=== PATIENT | male | born 1985 | race Two or more races ===

== ENCOUNTER 2024-04-27 10:28 | Inpatient (IN) | payer OTHER ==
[~2024-04-27] VITALS: Ht 172.7 cm; Wt 88.5 kg
[2024-04-27] MEDS: MAG HYDROX/AL HYDROX/SIMETH 30 ML UDC PO ONE (11:06)
[2024-04-27] MEDS: FAMOTIDINE (20 MG) 20 MG TABLET PO ONE (11:07)
[2024-04-27] MEDS ORDERED: MAG HYDROX/AL HYDROX/SIMETH 30 ML UDC ONE (11:08)
[2024-04-27] MEDS ORDERED: FAMOTIDINE (20 MG) 20 MG TABLET ONE (11:08)
[2024-04-27 11:16] LABS: BASOPHILS % (AUTO) 0.3 % (0.0-2.0); EOSINOPHILS % (AUTO) 0.8 % (0.0-6.0); HEMATOCRIT 43 % (39-51); HEMOGLOBIN 14.2 g/dL (13.5-17.5); MEAN CORPUSCULAR HEMOGLOBIN 29 PG (26.0-33.0); MEAN CORPUSCULAR HGB CONC 33 g/dl (31.0-36.0); MEAN CORPUSCULAR VOLUME 88 fL (80-96); MONOCYTES % (AUTO) 8.5 % (2.0-12.0); NEUTROPHILS % (AUTO) 82.4 % (43.0-81.0); PLATELET COUNT (AUTO) 252 K/uL (150-450); RED BLOOD CELL COUNT(AUTO) 4.82 MIL/uL (4.5-6.0); RED CELL DISTRIBUTION WIDTH 13.6 % (11.5-15.0); WHITE BLOOD COUNT (AUTO) 9.5 K/uL (4.3-11.0)
[2024-04-27 11:17] LABS: EOSINOPHILS # (AUTO) 0.1 K/uL (0.0-0.7); LYMPHOCYTES # (AUTO) 0.8 K/uL (0.8-4.8); MONOCYTES # (AUTO) 0.8 K/uL (0.1-1.30); NEUTROPHILS # (AUTO) 7.8 K/uL (1.8-8.9)
[2024-04-27 11:25] LABS: CALCIUM, SERUM 9.5 mg/dL (8.5-10.1); CARBON DIOXIDE 27 mmol/L (21-32); CHLORIDE 102 mmol/L (98-107); CREATININE 1.1 mg/dL (0.6-1.3); GLUCOSE 105 mg/dL (74-106); SODIUM SERUM 139 mmol/L (136-145); UREA NITROGEN, BLOOD 16 mg/dL (7-18)
[2024-04-27] MEDS: ASPIRIN 81 MG TAB.CHEW PO ONE (12:00)
[2024-04-27] MEDS ORDERED: ASPIRIN 81 MG TAB.CHEW ONE (12:02)
[2024-04-27] MEDS ORDERED: IOHEXOL-350 100 ML VIAL IV ONE (12:17)
[2024-04-27] MEDS ORDERED: FORTICAL PO (13:12)
[2024-04-27] MEDS ORDERED: IBUP-1955 PO (13:12)
[2024-04-27] MEDS ORDERED: CALC-494 PO (13:12)
[2024-04-27 13:55] LABS: INR 0.98 (0.91-1.10); PARTIAL THROMBOPLASTIN TIME 27.9 SEC (24.3-34.3); PROTHROMBIN TIME 10.4 SECS (9.2-11.1)
[2024-04-27] MEDS ORDERED: ENOXAPARIN SODIUM 100 MG/ML DISP.SYRIN SQ ONE (13:56)
[2024-04-27] MEDS: ENOXAPARIN SODIUM 80 MG/0.8 ML DISP.SYRIN SQ ONE (13:58)
[2024-04-27] MEDS: ENOXAPARIN SODIUM 100 MG/ML DISP.SYRIN SQ ONE (14:17)
[2024-04-27] MEDS ORDERED: ZOLPIDEM TARTRATE 5 MG TABLET PO PRN (15:00)
[2024-04-27 15:53] VITALS: BP 140/94; TEMP 98.2; O2SAT 96
[2024-04-27] MEDS: HYDROCODONE/APAP 5/325MG TABLET PO PRN (18:39)
[2024-04-27 20:00] VITALS: BP 142/99; TEMP 97.3; O2SAT 95
[2024-04-27] MEDS: ENOXAPARIN SODIUM 80 MG/0.8 ML DISP.SYRIN SQ SCH (20:27)
[2024-04-28] VITALS: BP 137/98; TEMP 97.6; O2SAT 96
[2024-04-28 04:00] VITALS: BP 139/95; TEMP 98.1; O2SAT 96
[2024-04-28] MEDS: ACETAMINOPHEN 650 MG/20.3 ML UDC NG PRN (06:17)
[2024-04-28 06:39] LABS: BASOPHILS % (AUTO) 0.6 % (0.0-2.0); EOSINOPHILS # (AUTO) 0.1 K/uL (0.0-0.7); EOSINOPHILS % (AUTO) 2.3 % (0.0-6.0); HEMATOCRIT 44 % (39-51); HEMOGLOBIN 14.5 g/dL (13.5-17.5); LYMPHOCYTES # (AUTO) 1.2 K/uL (0.8-4.8); LYMPHOCYTES % (AUTO) 21.3 % (20.0-44.0); MEAN CORPUSCULAR HEMOGLOBIN 29 PG (26.0-33.0); MEAN CORPUSCULAR HGB CONC 33 g/dl (31.0-36.0); MEAN CORPUSCULAR VOLUME 89 fL (80-96); MONOCYTES # (AUTO) 0.6 K/uL (0.1-1.30); MONOCYTES % (AUTO) 11.1 % (2.0-12.0); NEUTROPHILS # (AUTO) 3.6 K/uL (1.8-8.9); NEUTROPHILS % (AUTO) 64.7 % (43.0-81.0); PLATELET COUNT (AUTO) 243 K/uL (150-450); RED BLOOD CELL COUNT(AUTO) 4.93 MIL/uL (4.5-6.0); RED CELL DISTRIBUTION WIDTH 13.7 % (11.5-15.0); WHITE BLOOD COUNT (AUTO) 5.6 K/uL (4.3-11.0)
[2024-04-28 06:47] LABS: CALCIUM, SERUM 9.3 mg/dL (8.5-10.1); CARBON DIOXIDE 23 mmol/L (21-32); CHLORIDE 105 mmol/L (98-107); CREATININE 0.9 mg/dL (0.6-1.3); GLUCOSE 102 mg/dL (74-106); POTASSIUM 3.9 mmol/L (3.5-5.1); SODIUM SERUM 140 mmol/L (136-145); UREA NITROGEN, BLOOD 11 mg/dL (7-18)
[2024-04-28 07:46] LABS: CHOLESTEROL 249 mg/dL (<200); HDL CHOLESTEROL 59 mg/dL (40-60); LDL 150 mg/dL (0-99); TRIGLYCERIDES 249 mg/dL (30-150)
[2024-04-28] MEDS ORDERED: ACETAMINOPHEN 325 MG TABLET PO PRN (08:30)
[2024-04-28] MEDS ORDERED: APIX5TAB4 PO (09:06)
[2024-04-28 10:11] VITALS: BP 146/97; TEMP 98.2; O2SAT 93
[2024-04-28] MEDS ORDERED: APIXABAN 5 MG TABLET PO SCH (17:00)
== END 2024-04-28 11:00 | disposition home or self-care (01) | DRG 134 ==
LOC: ER 10:28 → TELE 13:46
PROVIDERS: ADMIT Internal Medicine; ATTEND Internal Medicine
DX: I26.99 Other pulmonary embolism without acute cor pulmonale (principal); I21.A1 Myocardial infarction type 2; D68.59 Other primary thrombophilia; K21.9 Gastro-esophageal reflux disease without esophagitis
CPT/HCPCS: 36415; 71045-TC; 80048-TC; 80061-TC; 82550-TC; 82553; 84484-TC; 85025-TC; 85730-TC; 93307-TC; 93970-TC; G0378; J1650; Q9967

== ENCOUNTER 2024-08-01 10:29 | Inpatient (IN) | payer OTHER ==
[~2024-08-01] VITALS: Ht 172.7 cm; Wt 88.5 kg
[~2024-08-01 10:29] MED LIST: APIX5TAB4 PO; CALC-494 PO; FORTICAL PO
[2024-08-01 11:00] VITALS: TEMP 98.3
[2024-08-01] MEDS ORDERED: METOCLOPRAMIDE HCL 10 MG/2 ML VIAL ONE (11:40)
[2024-08-01] MEDS ORDERED: ACETAMINOPHEN ES 500 MG TABLET ONE (11:40)
[2024-08-01] MEDS ORDERED: SUMATRIPTAN SUCCINATE 6 MG/0.5 ML VIAL SQ ONE (11:40)
[2024-08-01 11:47] LABS: BASOPHILS % (AUTO) 0.9 % (0.0-2.0); EOSINOPHILS # (AUTO) 0.1 K/uL (0.0-0.7); EOSINOPHILS % (AUTO) 1.8 % (0.0-6.0); HEMATOCRIT 44 % (39-51); HEMOGLOBIN 14.9 g/dL (13.5-17.5); LYMPHOCYTES # (AUTO) 1.1 K/uL (0.8-4.8); LYMPHOCYTES % (AUTO) 20.3 % (20.0-44.0); MEAN CORPUSCULAR HEMOGLOBIN 30 PG (26.0-33.0); MEAN CORPUSCULAR HGB CONC 34 g/dl (31.0-36.0); MEAN CORPUSCULAR VOLUME 87 fL (80-96); MONOCYTES # (AUTO) 0.4 K/uL (0.1-1.30); MONOCYTES % (AUTO) 8.2 % (2.0-12.0); NEUTROPHILS # (AUTO) 3.7 K/uL (1.8-8.9); NEUTROPHILS % (AUTO) 68.8 % (43.0-81.0); PLATELET COUNT (AUTO) 267 K/uL (150-450); RED BLOOD CELL COUNT(AUTO) 5.05 MIL/uL (4.5-6.0); RED CELL DISTRIBUTION WIDTH 13.7 % (11.5-15.0); WHITE BLOOD COUNT (AUTO) 5.3 K/uL (4.3-11.0)
[2024-08-01 11:51] LABS: CALCIUM, SERUM 8.8 mg/dL (8.5-10.1); CARBON DIOXIDE 33 mmol/L (21-32); CHLORIDE 105 mmol/L (98-107); GLUCOSE 100 mg/dL (74-106); POTASSIUM 4.1 mmol/L (3.5-5.1); SODIUM SERUM 142 mmol/L (136-145); UREA NITROGEN, BLOOD 10 mg/dL (7-18)
[2024-08-01] MEDS: IV NS 0.9% 1,000 ML BAG IV ONE (11:52)
[2024-08-01] MEDS: METOCLOPRAMIDE HCL 10 MG/2 ML VIAL IV ONE (11:52)
[2024-08-01] MEDS: ACETAMINOPHEN ES 500 MG TABLET PO ONE (11:53)
[2024-08-01] MEDS: SUMATRIPTAN SUCCINATE 6 MG/0.5 ML VIAL SQ ONE (11:54)
[2024-08-01] MEDS ORDERED: LABETALOL 20 MG/4 ML VIAL ONE (12:30)
[2024-08-01] MEDS: LABETALOL HCL IV 100MG VIAL IV ONE (12:35)
[2024-08-01 13:01] LABS: INR 1.01 (0.91-1.10); PROTHROMBIN TIME 10.7 SECS (9.2-11.1)
[2024-08-01 13:34] LABS: PARTIAL THROMBOPLASTIN TIME 31.5 SEC (24.3-34.3)
[2024-08-01] MEDS ORDERED: APIX5TAB PO (14:21)
[2024-08-01] MEDS ORDERED: MAG HYDROX/AL HYDROX/SIMETH 30 ML UDC PO PRN (18:30)
[2024-08-01] MEDS ORDERED: MAGNESIUM HYDROXIDE 30 ML UDC PO PRN (18:30)
[2024-08-01] MEDS ORDERED: ONDANSETRON HCL/PF 4 MG/2 ML VIAL IVP PRN (18:30)
[2024-08-01] MEDS ORDERED: ACETAMINOPHEN 325 MG TABLET PO PRN (18:30)
[2024-08-01] MEDS ORDERED: Z GUARD REMEDY 4 OZ OINT TP PRN (18:30)
[2024-08-01] MEDS ORDERED: ZOLPIDEM TARTRATE 5 MG TABLET PO PRN (18:30)
[2024-08-01] MEDS ORDERED: CT SWABBABLE VALVE TRANS SET 1 EA INFUS.SET MC ONE (18:55)
[2024-08-01] MEDS ORDERED: IV NS 0.9% 250 ML IV ONE (18:55)
[2024-08-01] MEDS ORDERED: IOHEXOL-350 100 ML VIAL IV ONE (18:55)
[2024-08-01 19:33] VITALS: BP 136/96; O2SAT 93
[2024-08-02] MEDS ORDERED: PANTOPRAZOLE 40 MG TABLET.DR PO SCH (07:30)
[2024-08-02] MEDS ORDERED: APIXABAN 5 MG TABLET PO SCH (09:00)
== END 2024-08-01 21:45 | disposition left against medical advice (07) | DRG 190 ==
LOC: ER 10:40 → TELE 20:22
PROVIDERS: ADMIT Student in an Organized Health Care Education/Training Program; ATTEND Student in an Organized Health Care Education/Training Program
DX: I21.4 Non-ST elevation (NSTEMI) myocardial infarction (principal); G45.9 Transient cerebral ischemic attack, unspecified; I10 Essential (primary) hypertension; Z79.01 Long term (current) use of anticoagulants; Z86.711 Personal history of pulmonary embolism; R20.0 Anesthesia of skin; R51.9 Headache, unspecified; R29.700 NIHSS score 0
CPT/HCPCS: 36415; 70450-TC; 70496-TC; 70498-TC; 80048-TC; 84484-TC; 85025-TC; 85730-TC; G0378; J2765; J3030; J3490; J7030; J7050; Q9967